=== PATIENT | male | born 1955 | race Caucasian/White ===

== ENCOUNTER 2016-09-29 00:49 | Observation (INO) | payer MEDICARE, OTHER ==
[~2016-09-29] VITALS: Ht 152.4 cm; Wt 85.0 kg
[~2016-09-29 00:49] MED LIST: ACAM333T7 PO; AMLO-147 PO; DULA1.5P SQ; ESCI10TA PO; ESOM40CA PO; HYDR-906 PO; INSU200I4 SQ; MYCO250C3 PO; OLME1TAB31 PO; REPA1TAB5 PO; SERT50TA6 PO
[2016-09-29 00:50] VITALS: Ht 152.4 cm; Wt 85.0 kg
[2016-09-29 01:41] LABS: BASOPHILS % 0.8 % (0.0-2.0); EOSINOPHILS % 1.3 % (0.0-7.0); HEMATOCRIT 41.3 % (42.0-52.0); HEMOGLOBIN 13.5 g/dl (14.0-18.0); LYMPHOCYTES # 1.2 10^3/ul (0.8-2.9); LYMPHOCYTES % 34.5 % (15.0-51.0); MEAN CORPUSCULAR HEMOGLOBIN 27.7 pg (29.0-33.0); MEAN CORPUSCULAR HGB CONC 32.6 g/dl (32.0-37.0); MEAN CORPUSCULAR VOLUME 85.1 fl (82.0-101.0); MEAN PLATELET VOLUME 9.3 fl (7.4-10.4); MONOCYTE # 0.3 10^3/ul (0.3-0.9); MONOCYTES % 7.9 % (0.0-11.0); NEUTROPHILS % 55.5 % (39.0-77.0); PLATELET COUNT 162 10^3/UL (140-440); RED BLOOD COUNT 4.86 10^6/ul (4.70-6.10); RED CELL DISTRIBUTION WIDTH 14.8 % (11.5-14.5); UNCORRECTED WBC 3.5 10^3/ul (4.8-10.8); WHITE BLOOD COUNT 3.5 10^3/ul (4.8-10.8)
[2016-09-29 01:43] LABS: CHLORIDE 103 mmol/L (97-110); SODIUM 144 mmol/L (135-144)
[2016-09-29 01:44] LABS: INR 0.81; PROTIME 11.2 Sec (12.2-14.2); PT RATIO 0.9
[2016-09-29 01:45] LABS: CONDITION 1; CREATININE 1.04 mg/dl (0.61-1.24); LH ANALYZER COMMENTS 1; PARTIAL THROMBOPLASTIN TIME 23.6 Sec (25.0-35.0)
[2016-09-29 01:46] LABS: ALANINE AMINOTRANSFERASE 19 IU/L (13-69); ALBUMIN/GLOBULIN RATIO 1.17; ALKALINE PHOSPHATASE 119 IU/L (42-121); ANION GAP 18 (8-16); ASPARTATE AMINO TRANSFERASE 23 IU/L (15-46); BILIRUBIN,INDIRECT 0.2 mg/dl (0-1.1); BILIRUBIN,TOTAL 0.2 mg/dl (0.2-1.3); BLOOD UREA NITROGEN 16 mg/dl (7-20); CARBON DIOXIDE 27 mmol/L (21-31); GLUCOSE 120 mg/dl (70-220); TOTAL PROTEIN 7.4 g/dl (6.1-8.1)
[2016-09-29 01:47] LABS: CALCIUM 9.3 mg/dl (8.4-10.2)
--- NOTE | 2016-09-29 01:47 | RADRPT ---
PROCEDURE: XR Chest. CLINICAL INDICATION: Chest Pain. TECHNIQUE: Single frontal chest x-ray. COMPARISON: 03/16/2014 FINDINGS: The lungs are clear. No focal opacification is seen. The heart is not enlarged. Calcification in the aortic arch. Degenerative changes in thoracic spine. ECG leads projected over the chest. The pa tient is in lordotic position and appears to be minimally rotated to the right. IMPRESSION: 1. There is no acute cardiopulmonary process. RPTAT: HJES .Cipriano Shelley MD, MD Date Time Electronically viewed and signed by .Cipriano Shelley MD, on 09/29/2016 01:47 .S/
[2016-09-29 02:04] LABS: TROPONIN-I < 0.012 ng/ml (0.00-0.12)
[2016-09-29] MEDS ORDERED: ONDANSETRON 4 MG INJ IV STA (04:57)
[2016-09-29] MEDS ORDERED: ONDANSETRON 4 MG INJ IV PRN ×2 (05:00→09:00)
[2016-09-29] MEDS ORDERED: ACETAMINOPHEN 325 MG TAB PO PRN ×2 (05:00→09:00)
[2016-09-29 05:21] VITALS: TEMP 98.9
--- NOTE | 2016-09-29 05:28 | ERA ---
ER Documentation Chief Complaint Date/Time DATE: 09/29/16 TIME: 05:23 Chief Complaint SOB, DEHYDRATED HPI 61-year-old male with a history of hypertension, prostate cancer in remission, alcoholic cirrhosis, status post liver transplant several years ago presenting with shortness of breath for about 3 days. He states the episodes of shortness of breath or intermittent, lasting a few minutes, worse at night with laying down. He denies any associated chest pain, fever, chills, cough, leg swelling, or change in urine output. No recent surgeries, immobilization, or prolonged travel. No history of blood clots. ROS All systems reviewed and are negative except as per history of present illness. Medications Home Meds Active Scripts Hydrocodone/Acetaminophen ([place] 5-325 Tablet) 1 Each Tablet, 1 TAB PO Q6H Y for PAIN, #7 TAB Prov:SETH COTA MD 08/15/16 Hydrocodone/Acetaminophen ([place] 5-325 Tablet) 1 Each Tablet, 1 EACH PO Q6, #7 TAB Prov:PATRICK SEPULVEDA DO 08/02/16 Reported Medications Insulin Degludec (Tresiba Flextouch U-200) 200 Unit/1 Ml Insuln.pen, 26 UNIT SQ DAILY 08/02/16 Dulaglutide (Trulicity) 1.5 Mg/0.5 Ml Pen.injctr, 1.5 MG SQ DIRECTED 08/02/16 Yvvyvqbtpe-Htqhxnogge-OZBF (Tribenzor) 40-5-12.5 Mg Tablet, 1 TAB PO DAILY, TAB 08/02/16 Escitalopram Oxalate* (Lexapro*) 10 Mg Tablet, 10 MG PO DAILY, #30 TAB 08/02/16 Sertraline Hcl* (Sertraline Hcl*) 50 Mg Tablet, 50 MG PO DAILY, #30 TAB 08/02/16 Repaglinide* (Repaglinide*) 1 Mg Tablet, 1 MG PO AC MEALS, TAB 08/02/16 Acamprosate (Acamprosate Calcium) 333 Mg Tablet.dr, 333 MG PO TID, TAB 08/02/16 Amlodipine Besylate* (Amlodipine Besylate*) 10 Mg Tablet, 10 MG PO DAILY, #30 TAB 08/02/16 Mycophenolate Mofetil* (Cellcept*) 250 Mg Capsule, 250 MG PO BID, CAP 08/02/16 Esomeprazole Mag Trihydrate (Nexium) 40 Mg Capsule.dr, 40 MG PO DAILY, #30 CAP 08/02/16 Allergies Allergies: Coded Allergies: No Known Allergy (Unverified , 08/15/16) PMhx/Soc History of Surgery: Yes (Liver transplant) Hx Cardiac Disorders: Yes (HTN, HLD) Hx Miscellaneous Medical Probl: Yes (DM, PROSTATE CANCER,CIRRHOSIS, 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 Neck: Full range of motion. No meningismus. Resp: No tachypnea, clear to auscultation bilaterally Cardio: Regular rate and rhythm, no murmurs Abd: Well-healed surgical scar, soft, non tender, non distended. No ascites. Normal bowel sounds Skin: No petechiae or rashes Back: No midline or flank tenderness Ext: No cyanosis, or edema. No calf tenderness. No cords. Negative Homans sign Neur: Awake and alert and oriented 3, moving all extremities Psych: Normal Mood and Affect Result Diagram: 09/29/16 01309/29/16 0130 Results 24 hrs Laboratory Tests Test 09/29/16 01:30 Activated Partial Thromboplast Time 23.6Sec Alanine Aminotransferase (ALT/SGPT) 19IU/L Albumin 4.0g/dl Albumin/Globulin Ratio 1.17 Alkaline Phosphatase 119IU/L Anion Gap 18 Aspartate Amino Transf (AST/SGOT) 23IU/L Basophils # 0.010^3/ul Basophils % 0.8% Blood Morphology Comment Blood Urea Nitrogen 16mg/dl Calcium Level 9.3mg/dl Carbon Dioxide Level 27mmol/L Chloride Level 103mmol/L Creatinine 1.04mg/dl Direct Bilirubin 0.00mg/dl Eosinophils # 0.010^3/ul Eosinophils % 1.3% Globulin 3.40g/dl Glucose Level 120mg/dl Hematocrit 41.3% Hemoglobin 13.5g/dl INR International Normalized Ratio 0.81 Indirect Bilirubin 0.2mg/dl Lymphocytes # 1.210^3/ul Lymphocytes % 34.5% Mean Corpuscular Hemoglobin 27.7pg Mean Corpuscular Hemoglobin Concent 32.6g/dl Mean Corpuscular Volume 85.1fl Mean Platelet Volume 9.3fl Monocytes # 0.310^3/ul Monocytes % 7.9% Neutrophils # 2.010^3/ul Neutrophils % 55.5% Nucleated Red Blood Cells # 0.010^3/ul Nucleated Red Blood Cells % 0.0/100WBC Platelet Count 31138^3/UL Potassium Level 4.0mmol/L Prothrombin Time 11.2Sec Prothrombin Time Ratio 0.9 Red Blood Count 4.8610^6/ul Red Cell Distribution Width 14.8% Sodium Level 144mmol/L Total Bilirubin 0.2mg/dl Total Protein 7.4g/dl Troponin I < 0.012ng/ml White Blood Count 3.510^3/ul Current Medications Medications (Trade) Dose Ordered Sig/Susy Route PRN Reason Start Time Stop Time Status Last Admin Dose Admin Ondansetron HCl (Zofran Inj) 4 mg ER BRIDGE PRN IV NAUSEA AND/OR VOMITING 09/29/16 05:00 09/30/16 04:59 Acetaminophen (Tylenol Tab) 650 mg ER BRIDGE PRN PO MILD PAIN/FEVER 09/29/16 05:00 09/30/16 04:59 Ondansetron HCl (Zofran Inj) 4 mg ONCE STAT IV 09/29/16 04:57 09/29/16 04:59 DC 09/29/16 05:18 Procedures/MDM EKG: Rate/Rhythm: Normal Sinus Rhythm QRS, ST, T-waves: No changes consistent w/ acute ischemia Impression: No evidence of ischemia or arrhythmia Chest x-ray does not show any acute abnormalities per radiology Patients symptoms are concerning for a cardiac etiology. Other etiologies considered were PE, aortic dissection, pneumonia, pneumothorax, esophageal rupture. Vitals are stable and he has a normal oxygen saturation. EKG showed no acute ischemia. Initial troponin negative. CXR grossly unremarkable. However patient has an intermediate risk of adverse events. Plan to admit for further evaluation. Initial troponin negative. CXR grossly unremarkable. However, patient has high risk of adverse events. Patient is not safe for discharge and will need inpatient monitoring and further evaluation. Further workup for pulmonary embolism and cardiac pathology will be deferred to the inpatient team. Accepting Care Team: Current data and ongoing care discussed at time of admission. Primary: Bobbye Consulting: none Outstanding Data: none Departure Diagnosis: Primary Impression: Shortness of breath Condition: Fair JULIET FRANKEL MD Sep 29, 2016 05:28
[2016-09-29] MEDS ORDERED: LORAZEPAM 2 MG INJ IV ONE (06:30)
[2016-09-29] MEDS ORDERED: SOD CHLORIDE 0.9% 100 ML ONE (06:36)
[2016-09-29] MEDS ORDERED: IOHEXOL 300MG/ML 150 ML BTL ONE (06:36)
--- NOTE | 2016-09-29 07:24 | RADRPT ---
PROCEDURE: CT angiogram of the chest with contrast. CLINICAL INDICATION: Shortness of breath. TECHNIQUE: CT angiogram of the chest was obtained using a multi-detector high-resolution CT. Con tiguous axial images were obtained during the dynamic injection of 100 cc of Omnipaque 300 intraveno us contrast. Coronal and sagittal reformatted images were obtained. 3-D reformatted images were al so obtained. Images were reviewed on a PACS workstation. One or more of the following dose reduction techniques were used: - Automated exposure control. - Adjustment of the mA and/or kV according to patient size. - Use of iterative reconstruction technique. Exam CTD/vol = 18.90 mGy. Total exam DLP = 818.53 mGy-cm. COMPARISON: None. FINDINGS: The main pulmonary artery followed to the segmental divisions are well opacified. There is no filli ng defect or evidence of pulmonary embolism. The heart is normal in size. There is no pericardial thickening or effusion. The aorta is of normal course and caliber with scattered atherosclerotic ca lcifications. There is no evidence of aortic aneurysm or dissection. There is no evidence of chest wall mass. The visualized thyroid is unremarkable. There are no enla rged axillary lymph nodes. There are no enlarged mediastinal or hilar lymph nodes by CT criteria. There is mild bibasilar atelectasis. There is no parenchymal nodule or consolidation. There is no pleural effusion. The central tracheobronchial tree is within normal limits. Limited evaluation of the upper abdomen is unremarkable. IMPRESSION: No evidence of pulmonary embolism or aortic dissection. Vascular calcifications reflective of atherosclerosis. Mild bibasilar atelectasis. .Efraín Samayoa MD, MD Date Time Electronically viewed and signed by .Efraín Samayoa MD, MD on 09/29/2016 07:23 .T/
[2016-09-29 08:51] LABS: CREATINE KINASE 59 IU/L (23-200)
[2016-09-29 08:53] VITALS: PULSE 90
[2016-09-29 08:58] LABS: CK-MB 0.43 ng/ml (0.0-2.4)
[2016-09-29] MEDS ORDERED: morphine 2 MG INJ IV PRN (09:00)
[2016-09-29] MEDS ORDERED: ESCITALOPRAM 10 MG TAB PO SCH (09:00)
[2016-09-29] MEDS ORDERED: HEPARIN 5,000 UNIT/0.5 ML SYG SC SCH (09:00)
[2016-09-29] MEDS ORDERED: NON-FORMULARY/PATIENT OWN MED (Olmesartan-Amlodipine-HCTZ (Tribenzor) 1 TAB) PO SCH (09:00)
[2016-09-29] MEDS ORDERED: AMLODIPINE 10 MG TAB PO SCH (09:00)
[2016-09-29] MEDS ORDERED: HYDROCODONE/APAP (5/325) TAB PO PRN (09:00)
[2016-09-29] MEDS ORDERED: METHYLPREDNISOLONE 125 MG INJ IV ONE (09:00)
[2016-09-29] MEDS ORDERED: FAMOTIDINE 20 MG INJ IV SCH (09:00)
[2016-09-29] MEDS ORDERED: ACAMPROSATE 333 MG PO SCH (09:00)
[2016-09-29] MEDS ORDERED: ALBUTEROL/IPRATROPIUM (NEB) 3 ML AMP HHN PRN (09:00)
[2016-09-29] MEDS ORDERED: NACL 0.9% 3 ML SYG IV SCH (09:00)
--- NOTE | 2016-09-29 09:13 | HP ---
Date/Time of Note Date/Time of Note DATE: 09/29/16 TIME: 09:05 Assessment/Plan VTE Prophylaxis VTE Prophylaxis Intervention: SCD's Lines/Catheters IV Catheter Type (from Nrsg): Peripheral IV Assessment/Plan Assessment/Plan IMPRESSION 1. SOB 2. Hypertension 3. Prostate cancer in remission 4. Alcoholic cirrhosis, status post liver transplant PLAN Admit for observation Bronchodilators, steroid and oxygen Cont home meds and adjust as needed HPI/ROS Admit Date/Time Admit Date/Time Sep 29, 2016 at 04:58 Hx of Present Illness 61-year-old male with a history of hypertension, prostate cancer in remission, alcoholic cirrhosis, status post liver transplant several years ago presenting with shortness of breath for about 3 days. He states the episodes of shortness of breath or intermittent, lasting a few minutes, worse at night with laying down. He denies any associated chest pain, fever, chills, cough, leg swelling, or change in urine output. No recent surgeries, immobilization, or prolonged travel. In ER, BP 150/90 otherwise rest of vitals stable. CXR neg and CTp/a with only mild atelectesis. PMH/Family/Social Past Medical History Medical History: hypertension, other (prostate cancer and cirrhosis) Social History Smoking Status: Former smoker Exam/Review of Systems Vital Signs Vitals Vital Signs Date Time Temp Pulse Resp B/P Pulse Ox O2 Delivery O2 Flow Rate FiO2 09/29/16 08:53 90 09/29/16 07:06 20 160/89 100 Nasal Cannula 2.0 09/29/16 05:21 98.9 Exam Constitutional: alert, oriented Eyes: EOMI, PERRL, nl conjunctiva Neck: non-tender, supple Respiratory: clear to auscultation, normal air movement Cardiovascular: nl pulses, regular rate and rhythm Gastrointestinal: non-tender, soft Extremities: normal pulses Labs Result Diagram: 09/29/1612909/29/16 013 Medications Medications Current Medications Ondansetron HCl (Zofran Inj) 4 mg Q6H PRN IV NAUSEA AND/OR VOMITING; Start at 09:00; Status UNV Acetaminophen (Tylenol Tab) 650 mg Q6H PRN PO PAIN LEVEL 1-3 OR FEVER; Start at 09:00; Status UNV Morphine Sulfate (morphine) 2 mg Q4H PRN IV PAIN LEVEL 7-10; Start 09/29/16 at 09:00; Status UNV Famotidine (Pepcid Iv) 20 mg Q12 IV ; Start 09/29/16 at 09:00; Status UNV Heparin Sodium (Porcine) (Heparin (5000 Units/0.5 ml)) 5,000 unit Q12 SC ; Start 09/29/16 at 09:00; Status UNV Amlodipine Besylate (Norvasc) 10 mg DAILY PO ; Start 09/29/16 at 09:00; Status UNV Escitalopram Oxalate (Lexapro) 10 mg DAILY PO ; Start 09/29/16 at 09:00; Status UNV Acetaminophen/ Hydrocodone Bitart ([place] (5/325)) 1 tab Q6H PRN PO PAIN; Start 09/29/16 at 09:00; Status UNV Mycophenolate Mofetil (Cellcept) 250 mg BID PO ; Start 09/29/16 at 09:00; Status UNV Sertraline HCl (Zoloft) 50 mg DAILY PO ; Start 09/29/16 at 09:00; Status UNV Miscellaneous Information 333 mg TID PO ; Start 09/29/16 at 09:00; Status UNV Miscellaneous Information 1 tab DAILY PO ; Start 09/29/16 at 09:00; Status UNV Methylprednisolone Sodium Succinate (Solu-Medrol) 60 mg ONCE ONCE IV ; Start at 09:00; Stop 09/29/16 at 09:01; Status UNV ANNA GARCIA MD Sep 29, 2016 09:13
[2016-09-29 09:48] LABS: TROPONIN-I < 0.012 ng/ml (0.00-0.12)
[2016-09-29] MEDS ORDERED: SERTRALINE 50 MG TAB PO SCH (10:30)
[2016-09-29] MEDS ORDERED: MYCOPHENOLATE 250 MG CAP PO SCH (10:30)
[2016-09-29] MEDS ORDERED: REPAGLINIDE 1 MG TAB PO SCH (11:30)
[2016-09-29 12:33] VITALS: BP 177/66; RESP 20
[2016-09-29 13:09] VITALS: PULSE 83
[2016-09-29] MEDS ORDERED: HYDROCHLOROTHIAZIDE 25 MG TAB PO SCH (13:30)
[2016-09-29] MEDS ORDERED: LOSARTAN 50 MG TAB PO SCH (13:30)
--- NOTE | 2016-09-29 13:58 | RADRPT ---
Echocardiogram Report Patient Name: SANKET MONTANO Gender: Male Date: 1955 Study Date: 29-Sep-2016 Toy Designer: Paola [facility] Location: [id number] Ref. Physician: ANNA GARCIA Quality: Technically Difficult Study Procedures: Transthoracic echocardiogram with complete 2D, M-Mode, and doppler examination. Indications: Shortness of breath. 2D/M Mode Doppler Measurement Value Normal Ranges Measurement Value Normal Ranges LVIDd 2D 5.7 3.5 - 5.6 cm AV Peak Tyson 1.0 m/sec LVIDs 2D 3.0 2.1 - 4.1 cm AV Peak PG 4.0 mmHg FS 2D 46.7 % AI Peak PG 29.0 mmHg LVPWd 2D 1.1 0.6 - 1.1 cm AI Peak Tyson 2.7 m/sec IVSd 2D 0.9 0.6 - 1.1 cm AI PHT 484.0 msec IVS/LVPW 2D 0.8 LVOT Peak Tyson 0.8 m/sec AoR Diam 2D 3.8 2.0 - 3.7 cm LVOT Peak PG 3.0 mmHg LA/Ao 2D 1 0 - 1 MV E Peak Tyson 0.5 m/sec EDV 2D 180.0 cm3 MV A Peak Tyson 0.8 m/sec ESV 2D 27.3 cm3 MV E/A 0.5 LA Dimen 2D 3.1 2.3 - 4.0 cm MV Decel Time 201 msec MV E/A 0.5 TR Peak Tyson 2.4 m/sec TR Peak PG 24.0 mmHg RVSP 27.0 mmHg Findings Left Ventricle: Normal left ventricular systolic function. Normal left ventricular cavity size. Mild concentric left ventricular hypertrophy. Ejection fraction is visually estimated at 60 %. Tissue Doppler/Mitral Doppler indices are consistent with impaired relaxation (Stage I diastolic dysfunction). Right Ventricle: Normal right ventricular size. Normal right ventricular systolic function. Left Atrium: The left atrium is normal in size. Right Atrium: The right atrium is normal in size. Mitral Valve: Mild mitral leaflet calcification. Mild mitral annular calcification. Trace mitral regurgitation. Aortic Valve: No hemodynamically significant aortic stenosis by doppler. Aortic cusps appear mildly calcified. Trace aortic valve regurgitation. Tricuspid Valve: Normal appearance and function of the tricuspid valve with trace physiologic regurgitation. Estimated peak PA systolic pressure 27 mmHg. Pericardium: Normal pericardium with no significant pericardial effusion. Aorta: Normal aortic root. IVC: Normal size and normal respiratory collapse consistent with normal right atrial pressure. Conclusions 1.Normal left ventricular systolic function. Normal left ventricular cavity size. Mild concentric left ventricular hypertrophy. Ejection fraction is visually estimated at 60 %. Tissue Doppler/Mitral Doppler indices are consistent with impaired relaxation (Stage I diastolic dysfunction). 2.Normal right ventricular size. Normal right ventricular systolic function. 3.The left atrium is normal in size. 4.The right atrium is normal in size. 5.No significant valvular stenosis or regurgitation seen. 6.Normal pericardium with no significant pericardial effusion. Electronically Signed By: Kwaku Mobley 29-Sep-2016 13:57:12 -0800 Patient Name: SANKET MONTANO Study Date: 29-Sep-[id number]
[2016-09-29] MEDS ORDERED: hydrALAzine 20 MG INJ IV PRN (14:30)
--- NOTE | 2016-09-29 14:34 | PDOCDIS ---
Discharge Instructions CONDITION Patient Condition: Stable HOME CARE INSTRUCTIONS: Special Diet: carb controlled diet ACTIVITY: Activity Restrictions: Slowly Increase Activity FOLLOW UP/APPOINTMENTS Appointments Please take your medications as prescribed, and see your doctor in the clinic in 1 week. If you experience any further breathing problems, please call 911, or go to the ER. MIYA REYES Sep 29, 2016 14:34
[2016-09-29] MEDS ORDERED: ONDA4TAB8 PO (14:35)
[2016-09-29 14:49] LABS: CREATINE KINASE 60 IU/L (23-200)
[2016-09-29 15:03] LABS: CK-MB 0.43 ng/ml (0.0-2.4); TROPONIN-I < 0.012 ng/ml (0.00-0.12)
[2016-09-29 16:12] VITALS: BP 164/77; RESP 20
[2016-09-29 16:13] VITALS: PULSE 90
--- NOTE | 2016-09-29 16:25 | DS ---
DATE OF ADMISSION: 09/29/2016 DATE OF DISCHARGE: 09/29/2016 HOSPITAL COURSE: This is a 61-year-old male originally admitted on 02/27/2015 being discharged home later this evening pending a third troponin test on 2016. Patient came in with shortness of breath and history of alcoholic cirrhosis, status post liver transplant at [facility] 2 years ago. Also, prior history of prostate cancer in remission. In any event, he was admitted and he had imaging studies performed for shortness of breath symptoms. CTA showed no pulmonary embolism or dissection. Chest x-ray showed no acute cardiopulmonary disease Over the course of the hospital stay, he was weaned off of oxygen. He was breathing well. He had no further SOB, although he had some nausea, resolving. He was able to tolerate a pureed diet. He had no significant EKG changes. He had an echocardiogram that showed normal left ventricular systolic function, mild concentric left ventricular hypertrophy, ejection fraction estimated at 60% . There was some stage I diastolic dysfunction. No significant valvular stenosis or regurgitation was seen. DISCHARGE MEDICATIONS: 1. Zofran 4 mg p.o. q.6h. p.r.n. 2. Acamprosate 333 mg t.i.d. 3. Amlodipine 10 mg daily. 4. Trulicity 1.5 mg subQ as directed. 5. Lexapro 10 mg daily. 6. Nexium 40 mg daily. 7. [place] 5/325 q.6h. p.r.n. 8. Tresiba 26 units subQ daily. 9. CellCept 250 mg p.o. b.i.d. 10. Tribenzor 40/5/12.5 daily. 12. Repaglinide 1 mg p.o. with meals. 13. Sertraline 50 mg daily. Continue to follow up with regular doctor and liver specialist in the clinic in the next 1 to 2 weeks. FINAL DIAGNOSES: 1. Shortness of breath presently being ruled out for acute coronary syndrome. His first 2 troponins are negative. Negative CTA study. Negative chest x-ray for infection. 2. Hypertension. 3. Prostate cancer in remission. 4. Alcoholic cirrhosis, status post liver transplant. 5. Hypertensive urgency, resolving. Dictated By: MIYA GASCA Conf#: [id number] [facility]#: [id number] MTDD
[2016-09-30] MEDS ORDERED: INFLUENZA VIRUS VACCINE 0.5 ML (DISPENSING) IM* ONE (09:00)
== END 2016-09-29 18:47 | disposition home or self-care (01) ==
LOC: E/R 00:49 → MS4 04:58
PROVIDERS: ADMIT Internal Medicine; ATTEND Internal Medicine
DX: R06.02 Shortness of breath (principal); I16.0 Hypertensive urgency; E11.9 Type 2 diabetes mellitus without complications; Z85.46 Personal history of malignant neoplasm of prostate; Z87.891 Personal history of nicotine dependence; Z94.4 Liver transplant status
CPT/HCPCS: 36415; 71010; 71275; 80053; 82550; 82553; 82962; 84484; 85025; 85610; 85730; 93005; 93306; 96374; 96375; 99285; G0378; J0360; J1644; J2060; J2405; J2930; J7517; Q9967

== ENCOUNTER 2017-02-26 13:51 | Emergency (ER) | payer MEDICARE, OTHER ==
[~2017-02-26] VITALS: Ht 165.1 cm; Wt 82.0 kg
[~2017-02-26 13:51] MED LIST changes: +ONDA4TAB8 PO
[2017-02-26 13:54] VITALS: Ht 165.1 cm; Wt 82.0 kg
[2017-02-26] MEDS ORDERED: SODIUM CHLORIDE 0.9% 1L BAG IV* STA (14:23)
[2017-02-26 14:49] LABS: ADD SCAN DIFF NO
[2017-02-26 14:51] LABS: BASOPHILS % 0.3 % (0.0-2.0); EOSINOPHILS % 0.6 % (0.0-7.0); HEMATOCRIT 34.2 % (42.0-52.0); HEMOGLOBIN 11.2 g/dl (14.0-18.0); LYMPHOCYTES # 0.7 10^3/ul (0.8-2.9); LYMPHOCYTES % 21.4 % (15.0-51.0); MEAN CORPUSCULAR HEMOGLOBIN 27.3 pg (29.0-33.0); MEAN CORPUSCULAR HGB CONC 32.7 g/dl (32.0-37.0); MEAN CORPUSCULAR VOLUME 83.2 fl (82.0-101.0); MEAN PLATELET VOLUME 11.9 fl (7.4-10.4); MONOCYTE # 0.2 10^3/ul (0.3-0.9); MONOCYTES % 6.5 % (0.0-11.0); NEUTROPHIL # 2.4 10^3/ul (1.6-7.5); NEUTROPHILS % 70.6 % (39.0-77.0); PLATELET COUNT 150 10^3/UL (140-415); RED BLOOD COUNT 4.11 10^6/ul (4.70-6.10); RED CELL DISTRIBUTION WIDTH 12.9 % (11.5-14.5); WHITE BLOOD COUNT 3.4 10^3/ul (4.8-10.8)
[2017-02-26 15:05] LABS: INR 0.89; PT RATIO 0.9
[2017-02-26 15:06] LABS: PARTIAL THROMBOPLASTIN TIME 25.7 Sec (25.0-35.0)
[2017-02-26 15:08] LABS: ALANINE AMINOTRANSFERASE 24 IU/L (13-69); ALBUMIN 4.3 g/dl (3.3-4.9); ALBUMIN/GLOBULIN RATIO 1.72; ALKALINE PHOSPHATASE 83 IU/L (42-121); ANION GAP 12 (8-16); ASPARTATE AMINO TRANSFERASE 16 IU/L (15-46); BILIRUBIN,INDIRECT 0.2 mg/dl (0-1.1); BILIRUBIN,TOTAL 0.2 mg/dl (0.2-1.3); BLOOD UREA NITROGEN 23 mg/dl (7-20); CALCIUM 8.9 mg/dl (8.4-10.2); CARBON DIOXIDE 25 mmol/L (21-31); CHLORIDE 100 mmol/L (97-110); CREATININE 1.64 mg/dl (0.61-1.24); GLUCOSE 161 mg/dl (70-220); POTASSIUM 4.4 mmol/L (3.5-5.1); SODIUM 133 mmol/L (135-144); TOTAL PROTEIN 6.8 g/dl (6.1-8.1)
--- NOTE | 2017-02-26 15:09 | ERA ---
ER Documentation Chief Complaint Date/Time DATE: 02/26/17 TIME: 15:07 Chief Complaint Complains of hypotension HPI 62-year-old male history of liver transplant secondary to alcoholic cirrhosis who presents the emergency room with orthostasis and hypotension. Over the last 24 hours the patient has been feeling lightheaded upon standing. His blood pressure at home has been in the 70s and 80s systolic. Patient is being treated for hypertension with a beta-cristopher. He states compliance with medications. He denies any fevers chills chest pain or shortness of breath no back pain no abdominal pain. No nausea vomiting diarrhea, no hematemesis, no melena. Patient is feeling better currently. ROS All systems reviewed and are negative except as per history of present illness. Medications Home Meds Reported Medications Insulin Degludec (Tresiba Flextouch U-200) 200 Unit/1 Ml Insuln.pen, 26 UNIT SQ DAILY 08/02/16 Dulaglutide (Trulicity) 1.5 Mg/0.5 Ml Pen.injctr, 1.5 MG SQ DIRECTED 08/02/16 Wtcpxlbgdo-Wqnknxaece-BROW (Tribenzor) 40-5-12.5 Mg Tablet, 1 TAB PO DAILY, TAB 08/02/16 Escitalopram Oxalate* (Lexapro*) 10 Mg Tablet, 10 MG PO DAILY, #30 TAB 08/02/16 Sertraline Hcl* (Sertraline Hcl*) 50 Mg Tablet, 50 MG PO DAILY, #30 TAB 08/02/16 Repaglinide* (Repaglinide*) 1 Mg Tablet, 1 MG PO AC MEALS, TAB 08/02/16 Acamprosate (Acamprosate Calcium) 333 Mg Tablet.dr, 333 MG PO TID, TAB 08/02/16 Amlodipine Besylate* (Amlodipine Besylate*) 10 Mg Tablet, 10 MG PO DAILY, #30 TAB 08/02/16 Mycophenolate Mofetil* (Cellcept*) 250 Mg Capsule, 250 MG PO BID, CAP 08/02/16 Esomeprazole Mag Trihydrate (Nexium) 40 Mg Capsule.dr, 40 MG PO DAILY, #30 CAP 08/02/16 Discontinued Scripts Ondansetron Hcl* (Zofran*) 4 Mg Tablet, 4 MG PO Q6H Y for NAUSEA AND OR VOMITING , #20 TAB Prov:MIYA REYES 09/29/16 Hydrocodone/Acetaminophen (Wayne 5-325 Tablet) 1 Each Tablet, 1 TAB PO Q6H Y for PAIN, #7 TAB Prov:SETH COTA MD 08/15/16 Allergies Allergies: Coded Allergies: No Known Allergy (Unverified , 09/29/16) PMhx/Soc History of Surgery: Yes (LIVER TRANSPLANT) Anesthesia Reaction: No Hx Neurological Disorder: No Hx Respiratory Disorders: No Hx Cardiac Disorders: Yes (HTN, TACHYCARDIA) Hx Psychiatric Problems: No Hx Miscellaneous Medical Probl: Yes (DM) Hx Alcohol Use: Yes Hx Substance Use: No Hx Tobacco Use: Yes (QUIT 13YRS AGO) Smoking Status: Former smoker FmHx Family History: No diabetes Physical Exam Vitals Vital Signs Date Time Temp Pulse Resp B/P Pulse Ox O2 Delivery O2 Flow Rate FiO2 02/26/17 14:30 98.2 76 20 115/70 100 Room Air 02/26/17 13:54 98.3 101 20 84/56 99 Physical Exam General: Well developed, well nourished, no acute distress Head: Normocephalic, atraumatic. Eyes: Pupils equally reactive, EOM intact ENT: Moist mucous membranes Neck: Supple, no lymphadenopathy Respiratory: Lungs clear bilaterally, no distress Cardiovascular: RRR, no murmurs, rubs, or gallops Abdominal: Soft, non-tender, non-distended, no peritoneal signs, no pulsatile mass : Deferred MSK: No edema, no unilateral swelling, 5/5 strength Neurologic: Alert and oriented, moving all extremities, normal speech, no focal weakness, no cerebellar signs Skin: No rash Psych: Normal mood Result Diagram: 02/26/17 1430 02/26/17 1430 Results 24 hrs Laboratory Tests Test 02/26/17 14:23 02/26/17 14:30 Bedside Glucose 165mg/dL White Blood Count 3.410^3/ul Red Blood Count 4.1110^6/ul Hemoglobin 11.2g/dl Hematocrit 34.2% Mean Corpuscular Volume 83.2fl Mean Corpuscular Hemoglobin 27.3pg Mean Corpuscular Hemoglobin Concent 32.7g/dl Red Cell Distribution Width 12.9% Platelet Count 87997^3/UL Mean Platelet Volume 11.9fl Neutrophils % 70.6% Lymphocytes % 21.4% Monocytes % 6.5% Eosinophils % 0.6% Basophils % 0.3% Nucleated Red Blood Cells % 0.0/100WBC Neutrophils # 2.410^3/ul Lymphocytes # 0.710^3/ul Monocytes # 0.210^3/ul Eosinophils # 0.010^3/ul Basophils # 0.010^3/ul Nucleated Red Blood Cells # 0.010^3/ul Prothrombin Time 12.0Sec Prothrombin Time Ratio 0.9 INR International Normalized Ratio 0.89 Activated Partial Thromboplast Time 25.7Sec Sodium Level 133mmol/L Potassium Level 4.4mmol/L Chloride Level 100mmol/L Carbon Dioxide Level 25mmol/L Anion Gap 12 Blood Urea Nitrogen 23mg/dl Creatinine 1.64mg/dl Glucose Level 161mg/dl Lactic Acid Level 1.9mmol/L Calcium Level 8.9mg/dl Total Bilirubin 0.2mg/dl Direct Bilirubin 0.00mg/dl Indirect Bilirubin 0.2mg/dl Aspartate Amino Transf (AST/SGOT) 16IU/L Alanine Aminotransferase (ALT/SGPT) 24IU/L Alkaline Phosphatase 83IU/L Troponin I < 0.012ng/ml Total Protein 6.8g/dl Albumin 4.3g/dl Globulin 2.50g/dl Albumin/Globulin Ratio 1.72 Current Medications Medications (Trade) Dose Ordered Sig/Susy Route PRN Reason Start Time Stop Time Status Last Admin Dose Admin Sodium Chloride (NS) 2,540 ml BOLUS OVER 2 HOURS STAT IV* 02/26/17 14:23 02/26/17 14:24 DC 02/26/17 14:49 Procedures/MDM EKG, MONITORS, & DIAGNOSTIC IMAGING: EKG: I reviewed and interpreted a 12-lead EKG. Rhythm: Normal sinus rhythm Ectopy: None Intervals: No abnormalities ST segments: No elevations or depressions T waves: No contiguous inversions Chest x-ray: I reviewed and interpreted a 1 view of the chest Mediastinum: No enlargement Cardiac silhouette: No cardiomegaly Airspace: Clear lung magana bilaterally without evidence of pneumothorax Bones: No evidence of fracture LAB INTERPRETATION: No obvious infection of anemia or infection, normal Jose Guadalupe lites, normal lactic acid MEDICAL DECISION MAKING: The patient presents with what appears to be orthostatic hypotension of unclear etiology, consider dehydration. The patient does have a history of liver transplant but no evidence of persistent hypotension. The patient has no signs or symptoms of complication such as GI bleed. He has no pulsatile mass to suggest aortic process. He has no chest pain or shortness of breath to suggest cardiopulmonary process. No signs or symptoms concerning for sepsis. The patient will benefit from close observation, laboratory testing, blood cultures and fluid resuscitation. Low threshold for hospitalization of the patient is extremely well-appearing. ER COURSE: The patient continues to be well-appearing in the emergency room. His blood pressure has stabilized in the 120s and 130s systolic. The patient still feels slightly lightheaded upon standing but has negative orthostatic vital signs. I discussed inpatient hospitalization with the patient however he feels strongly about going home. Given that the patient has no evidence of infection has a normal lactic acid his blood pressure is stabilized I believe outpatient management would be reasonable. However, the patient was advised of the risks involved and advised of strict return precautions. The patient verbalizes understanding and close primary care follow-up. The patient continues to be extremely well-appearing in the emergency room and is walking to and from the bathroom without difficulty. I kept the patient and/or family informed of laboratory and diagnostic imaging results throughout the emergency room course. DISPOSITION PLAN: We discussed follow up with the patient's primary care doctor within 24 to 48 hours as needed. We also discussed return to the emergency room for worsening symptoms or worsening condition. Outpatient referral: [None required] Discharge Medications: None required Departure Diagnosis: Primary Impression: Orthostatic hypotension Additional Impression: Mild dehydration Condition: Stable IRAM EATON MD Feb 26, 2017 15:09
[2017-02-26 15:20] LABS: TROPONIN-I < 0.012 ng/ml (0.00-0.12)
--- NOTE | 2017-02-26 15:27 | RADRPT ---
PROCEDURE: XR Chest. CLINICAL INDICATION: Shortness of breath TECHNIQUE: Single frontal chest x-ray. COMPARISON: 09/29/2016 FINDINGS: The lungs are clear. No focal opacification is seen. No pneumothorax or pleural effusion is seen. Aortic arch atherosclerotic calcifications are present. Otherwise, the cardiomediastinal silhouett e is unremarkable. The osseous structures are grossly unremarkable. IMPRESSION: 1. No evidence of acute cardiopulmonary disease. 2. Aortic atherosclerosis. RPTAT: EE .Ronald Singh MD, Date Time Electronically viewed and signed by .Ronald Singh MD, on 02/26/2017 15:26 .A/
[2017-02-26 16:06] VITALS: BP 133/94; PULSE 95; RESP 20; TEMP 98.5
== END 2017-02-26 16:18 | disposition home or self-care (01) ==
LOC: E/R 13:51
DX: I95.1 Orthostatic hypotension (principal); E86.0 Dehydration; I10 Essential (primary) hypertension; E11.9 Type 2 diabetes mellitus without complications; K70.30 Alcoholic cirrhosis of liver without ascites; Z87.891 Personal history of nicotine dependence; Z94.4 Liver transplant status; Z79.4 Long term (current) use of insulin
CPT/HCPCS: 36415; 71010; 80053; 82962; 83605; 84484; 85025; 85610; 85730; 87040; 93005; 99285; J7030

== ENCOUNTER → 2017-04-20 | Outpatient (CLI) | payer MEDICARE, OTHER ==
[~2017-04-20] MED LIST changes: -HYDR-906 PO; -ONDA4TAB8 PO
--- NOTE | 2017-04-20 16:26 | RADRPT ---
PROCEDURE: XR Right Shoulder. CLINICAL INDICATION: Right shoulder pain. TECHNIQUE: Three views. Frontal internal rotation, frontal external rotation, and scapular Y-view . COMPARISON: No prior study is available for comparison. FINDINGS: There is no fracture or dislocation. The soft tissues are normal. The articular surfaces are intact. There are mild degenerative changes of the acromioclavicular aminata nt with small osteophytes noted. There is no lytic or blastic lesion. There is no radiopaque foreign body. IMPRESSION: 1. Mild degenerative changes of the acromioclavicular joint. 2. Otherwise normal images of the right shoulder. RPTAT: QQ .Jose Salazar MD, MD Date Time Electronically viewed and signed by .Jose Salazar MD, on 04/20/2017 16:22 .R/
--- NOTE | 2017-04-20 18:04 | RADRPT ---
PROCEDURE: XR Cervical Spine. CLINICAL INDICATION: Cervical spine pain. TECHNIQUE: AP, lateral and odontoid views of the cervical spine were performed. The images were re viewed on a PACS workstation. COMPARISON: CT cervical spine 08/02/2016 FINDINGS: There is trace retrolisthesis of C5 on C6 and C6 on C7. There are diffuse anterior osteophytes with moderate disc-space narrowing at C4-5, C5-6 and C6-7. There are associated moderate discogenic end plate changes at these levels. The vertebral body height and osseous mineralization are normal. The re is no evidence of fracture or dislocation. There is diffuse moderate facet arthropathy. There are mild degenerative changes of the atlanto-odontoid articulation. There is preservation of the remai billy intervertebral disc spaces. There are no abnormal calcifications. The prevertebral soft tissues are normal. No radiopaque foreign bodies are identified. IMPRESSION: 1. Stable moderate to severe spondylosis/degenerative enthesopathy at C4-5, C5-6 and C6-7 with grad e 1 retrolisthesis at C5-6 and C6-7. 2. Diffuse moderate facet spondylosis. 3. No acute fracture. RPTAT: HGAS .Nnamdi Montana MD, Date Time Electronically viewed and signed by .Nnamdi Montana MD, on 04/20/2017 18:03 .S/
--- NOTE | 2017-04-20 18:07 | RADRPT ---
PROCEDURE: XR Knee. CLINICAL INDICATION: Left knee pain. TECHNIQUE: AP, lateral and oblique views of the left knee were obtained. The images reviewed on a PACS workstation. COMPARISON: 08/02/2016 FINDINGS: The distal femur and proximal tibia/fibula are normal in appearance. There is no fracture. The medi al and lateral compartment joint spaces are preserved. There is no abnormal calcification. There i s no joint effusion. Hoffa's fat pad is normal in appearance. There is normal appearance of the pa tellofemoral joint. The soft tissues are unremarkable. IMPRESSION: 1. Normal radiographs of the left knee. No significant degenerative changes or evidence of fracture . RPTAT: HGAS .Nnamdi Montana MD, MD Date Time Electronically viewed and signed by .Nnamdi Montana MD, on 04/20/2017 18:07 .S/
--- NOTE | 2017-04-20 18:12 | RADRPT ---
PROCEDURE: XR Lumbar Spine. CLINICAL INDICATION: Lumbar spine pain. TECHNIQUE: AP, lateral, and cone-down lateral view of the lumbar spine were obtained. COMPARISON: No prior studies are available for comparison. FINDINGS: The alignment of the lumbar spine is within normal limits. There are anterior osteophytes from L3-S 1 with moderate narrowing of the intervertebral disc spaces at L5-S1 posteriorly. There are mild as sociated discogenic endplate changes at L5-S1. The vertebral body heights and marrow density are nor mal in appearance. There is moderate facet spondylosis at L4-5 and L5-S1 with suggestion of neural foraminal narrowing at these levels. The remaining neural foramina appear patent. The paraspinal s oft tissues unremarkable. There is no evidence of fracture. The posterior elements are unremarkabl e. There is moderate atherosclerotic calcification of the aorta and proximal iliac vessels. IMPRESSION: 1. Mild to moderate spondylosis/degenerative enthesopathy at at L5-S1, worse in the posterior aspec t of the disc-space. 2. Moderate facet spondylosis at L4-5 and L5-S1 with suggestion of neural foraminal narrowing at th caren levels. 3. No evidence of fracture. RPTAT: HGAS .Nnamdi Montana MD, Date Time Electronically viewed and signed by .Nnamdi Montana MD, on 04/20/2017 18:12 .S/
--- NOTE | 2017-04-20 18:13 | RADRPT ---
PROCEDURE: XR Ankle. CLINICAL INDICATION: Right ankle pain. TECHNIQUE: AP and lateral views of the right ankle were performed. COMPARISON: 08/15/2016 FINDINGS: The distal tibia and fibula are normal in appearance. The ankle mortise is maintained. The lateral process of the talus is intact. There is no evidence of fracture. The talus and calcaneus are nor mal in appearance. There is no plantar tendon enthesiophyte. There is no joint effusion. There is mild soft tissue swelling over the lateral ankle. IMPRESSION: 1. Mild soft tissue swelling over the lateral ankle without evidence of underlying fracture. RPTAT: HGAS .Nnamdi Montana MD, MD Date Time Electronically viewed and signed by .Nnamdi Montana MD, on 04/20/2017 18:13 .S/
== END | disposition home or self-care (01) ==
LOC: RAD 13:24
PROVIDERS: ATTEND Emergency Medicine
DX: M25.511 Pain in right shoulder (principal); M25.552 Pain in left hip; M54.2 Cervicalgia; M54.5 Low back pain; M25.561 Pain in right knee; M25.571 Pain in right ankle and joints of right foot; Z94.4 Liver transplant status; Z79.899 Other long term (current) drug therapy
CPT/HCPCS: 72050; 72100

== ENCOUNTER 2018-03-29 19:39 | Inpatient (IN) | END 2018-03-30 13:48 | disposition home or self-care (01) | DRG 683 ==